=== PATIENT | female | born 1985 | race African-American/Black ===

== ENCOUNTER 2020-06-25 15:32 | Observation (INO) | payer OTHER, SELFPAY ==
[2020-06-25] MEDS: DEXTROSE 5%/LACTATED RINGERS 1,000 ML 999 ML IV CONT (16:38)
[2020-06-25] MEDS: ONDANSETRON INJ 4 MG/2 ML VIAL IV PUSH ×2 (16:38→22:51)
[2020-06-25] MEDS: FAMOTIDINE 20 MG/2 ML VIAL IV PUSH (16:39)
[2020-06-25 16:51] VITALS: BP 117/68; PULSE 72
[2020-06-25 17:03] LABS: Hematocrit 41.6 % (37.0-47.0); Hemoglobin 13.3 g/dL (12.0-15.0); Mean Corpuscular Hemoglobin 27.8 pg (26-34); Mean Corpuscular Volume 86.8 fl (80-100); Mean Platelet Volume 10.3 fl (7.4-10.4); Platelet Count Result 311 k/mm3 (150-375); Red Blood Count 4.79 M/mm3 (4.2-5.4); Red Cell Distribution Width 13.5 % (11.5-14.5); White Blood Count 7.6 K/mm3 (4.5-10.0)
[2020-06-25 17:16] LABS: Add Urine Microscopic? YES; Appearance Urine Cloudy (Clear); Bilirubin Urine Negative (Negative); Blood Urine Negative (Negative); Color Urine Amber (Yellow); Glucose Urine UA Negative (Negative); Ketones Urine 2+ mg/dL (Negative); Leukocyte Esterase Ur Negative LEU/UL (NEGATIVE); Mucus Urine Heavy /lpf; Nitrate Urine Negative (Negative); Protein Urine 3+ mg/dL (Negative); RBC Urine 0-2 /hpf (0-2); Squamous Epithelial Cell Urine Few /hpf (Few); WBC Urine 0-3 /hpf (0-3)
[2020-06-25 17:18] LABS: Alanine Aminotransferase 16 U/L (4-35); Albumin Level 4.3 g/dL (3.5-5.1); Alkaline Phosphatase 51 U/L (38-126); Anion Gap 7 mmol/L (8-16); Aspartate Amino Transferase 27 U/L (14-36); Bilirubin,Total 0.5 mg/dL (0.2-1.3); Blood Urea Nitrogen 5 mg/dL (7-17); Calcium 9.5 mg/dL (8.4-10.2); Carbon Dioxide 26 mmol/L (22-30); Chloride 102 mmol/L (98-107); Estimated Glomerular Filt Rate > 60; Glucose 86 mg/dL (65-105); Potassium 3.9 mmol/L (3.4-5.0); Sodium 135 mmol/L (137-145)
[2020-06-25 17:22] LABS: Specific Grav Ur 1.035 (1.001-1.035)
[2020-06-25 17:29] VITALS: BMI 36.7
--- NOTE | 2020-06-25 17:58 | PM.IMHP ---
H&P: HPI History of Present Illness Date/Time: 06/25/20 17:58 Barbi is a 35yo @ 8.5wks (SARAH [birth year]) who presented to clinic today for routine care. She has been having significant N/V. She went to [facility] on Tuesday and was given IV fluids and anti-nausea meds. She was discharged home and instantly got sick. She has not been able to keep anything down; not even water (was actively vomiting in clinic). She has been taking B6, Unisom, reglan, and zofran (is out of her zofran script). She also reports heartburn. She denies CP, SOB, BHANDARI, vision changes, vaginal bleeding, cramping, dysuria, dizziness or palpitations. Chief Complaint: nausea and vomiting Review of Systems Review of Systems: All systems reviewed & are unremarkable except as noted in HPI and below (HPI) Meds Home Medications and Allergies Allergies Allergy/AdvReac Type Severity Reaction Status Date / Time No Known Allergies Allergy Unverified 06/18/13 10:25 Vital Signs Vital Signs - 24 hr 06/25/20 16:51 Pulse Rate 72 Blood Pressure 117/68 Exam Const: General: cooperative and ill appearing Resp: Effort & Inspection: normal respiratory effort and able to speak in complete sentences Cardio: Rate: regular rate GI: Inspection: non-distended GI Palp: No abdominal tenderness and Yes Soft to palpation : Other: single IUP on bedside US w/ +FHT's. Non tender. Back/Spine/Pelvis: Back: no CVA tenderness Skin: General skin exam: normal color Neuro: General: patient oriented x3 Extrem: General: normal to inspection Psych: Appearance: grossly normal Affect: normal affect Attitude: cooperative H&P: Results Labs Labs: Short CBC 06/25/20 Range/Units 16:50 WBC 7.6 (4.5-10.0) K/mm3 Hgb 13.3 (12.0-15.0) g/dL Hct 41.6 (37.0-47.0) % Plt Count 311 (150-375) k/mm3 BMP 06/25/20 16:50 Sodium 135 L Potassium 3.9 Chloride 102 Carbon Dioxide 26 BUN 5 L Creatinine 0.90 Glucose 86 Calcium 9.5 Liver Function 06/25/20 Range/Units 16:50 Total Bilirubin 0.5 (0.2-1.3) mg/dL AST 27 (14-36) U/L ALT 16 (4-35) U/L Alkaline Phosphatase 51 (38-126) U/L Albumin 4.3 (3.5-5.1) g/dL Urine 06/25/20 Range/Units 16:55 Urine Color Harper (Yellow) Urine Appearance Cloudy H (Clear) Urine pH 6.0 (5.0-9.0) Ur Specific [place] 1.035 (1.001-1.035) Urine Protein 3+ H (Negative) mg/dL Urine Glucose (UA) Negative (Negative) mg/dL Assessment and Plan Assessment and plan (1) Hyperemesis affecting , antepartum: Code(s): O21.0 - Mild hyperemesis gravidarum Status: Acute Additional Plan - Admit for IV fluids and IV anti-emetics and pepcid - Ice chips tonight (slowly) - If decreased nausea in the AM; will slowly advance to CLD and PO meds - Labs normal - UA collected, possibly contaminated-- Ucx pending
--- NOTE | 2020-06-25 18:10 | WPDHPUPDATE1 ---
History and Physical Update Update Date/Time: 06/25/20 18:10 History and Physical has been reviewed, including an updated exam of the patient. There are NO changes in the patient's condition. Risks, benefits, and alternatives have been discussed and questions answered. Patient agrees to proceed with procedure.
[2020-06-25 18:31] VITALS: BP 115/58; PULSE 82
[2020-06-25 18:32] VITALS: BP 117/61; PULSE 83
--- NOTE | 2020-06-25 18:35 | PC.NURSE ---
Pt continues to feel nauseated. Dr. Devi in unit and saw pt. Orders received.
[2020-06-25] MEDS: DEXTROSE 5%/LACTATED RINGERS 1,000 ML 200 ML IV CONT ×2 (18:38→23:56)
[2020-06-25] MEDS: METOCLOPRAMIDE HCL INJ 10 MG/2 ML VIAL IV PUSH ×2 (18:39→23:54)
[2020-06-25] MEDS: PROMETHAZINE HCL 12.5 MG SUPP.RECT RECTAL (18:40)
[2020-06-25 18:46] VITALS: BP 123/63; PULSE 86
--- NOTE | 2020-06-25 20:30 | PC.NURSE ---
Pt sleeping. No complaints.
[2020-06-25 22:46] VITALS: BP 108/50; PULSE 83
[2020-06-25] MEDS: PYRIDOXINE HCL 25 MG TABLET PO (22:52)
--- NOTE | 2020-06-26 02:34 | PC.NURSE ---
Addendum entered by Fuad Presley RN 06/26/20 02:36: AMEND NOTE TO TIME 06/25/20 at 2230 Original Note: Pt states Phenergan made her feel like she needed to have BM and does not want to take it again. Pt has been sleeping and states nausea is much better. No vomiting. IV infusing without difficulty.
[2020-06-26] MEDS: DEXTROSE 5%/LACTATED RINGERS 1,000 ML 200 ML IV CONT ×2 (05:06→10:00)
[2020-06-26] MEDS: FAMOTIDINE 20 MG/2 ML VIAL IV PUSH (05:06)
[2020-06-26] MEDS: ONDANSETRON INJ 4 MG/2 ML VIAL IV PUSH (05:07)
--- NOTE | 2020-06-26 06:48 | PC.NURSE ---
Addendum entered by Fuad Presley RN 06/26/20 06:50: Note should be timed 0430. Original Note: Pt has been sleeping all night. No vomiting. Pt states she is feeling much better. Kept ice chips down.
[2020-06-26 08:09] VITALS: BP 113/57; PULSE 82
[2020-06-26] MEDS: METOCLOPRAMIDE HCL INJ 10 MG/2 ML VIAL IV PUSH (10:01)
--- NOTE | 2020-06-26 12:46 | PM.OBPNVD ---
OB - PN: Subj Subjective Date/time seen: 06/26/20 12:47 Barbi reports doing better today. One small episode of emesis, but denies nausea now. She has tolerated regular diet (apple, soup, cereal). She reports her heartburn is improved. She is passing gas but constipated. She has urinated >1000cc today. She denies cramping or bleeding. no CP, SOB, n, fever, chills, dysuria or abdominal pain. OB - PN: Obj Data Labs CBC & Chem 7: 06/25/20 16:50 06/25/20 16:50 Labs: Laboratory Results - last 24 hr 06/25/20 06/25/20 06/25/20 16:50 16:50 16:55 WBC 7.6 RBC 4.79 Hgb 13.3 Hct 41.6 MCV 86.8 MCH 27.8 MCHC 32.0 RDW 13.5 Plt Count 311 MPV 10.3 Sodium 135 L Potassium 3.9 Chloride 102 Carbon Dioxide 26 Anion Gap 7 L BUN 5 L Creatinine 0.90 Estim Creat Clear Calc Not Reportable Estimated GFR > 60 Glucose 86 Calcium 9.5 Total Bilirubin 0.5 AST 27 ALT 16 Alkaline Phosphatase 51 Total Protein 8.0 Albumin 4.3 Urine Color Harper Urine Appearance Cloudy H Urine pH 6.0 Ur Specific [place] 1.035 Urine Protein 3+ H Urine Glucose (UA) Negative Urine Ketones 2+ H Ur Blood (Man) Negative Urine Nitrate Negative Urine Bilirubin Negative Urine Urobilinogen 2.0 H Ur Leukocyte Esterase Negative Urine RBC 0-2 Urine WBC 0-3 Ur Squamous Epith Cells Few Hyaline Casts 1-2 Urine Mucus Heavy H OB - PN A/P Assessment and Plan (1) Hyperemesis affecting , antepartum: Code(s): O21.0 - Mild hyperemesis gravidarum Status: Acute Plan Comments: meds switched to PO; IV fluids stopped tolerated regular diet discussed eating small, bland meals frequently and taking meds as prescribed; stay hydrated f/u in clinic at normal appointment; call if rx's needed er precautions Time Spent With Patient Time: Total time spent is greater than 50% in coordination of care (as documented) at patient's floor/unit and/or counseling patient: Review of Systems Review of Systems: All systems reviewed & are unremarkable except as noted in HPI and below (HPI) Exam Const: General: cooperative, healthy appearing, comfortable and no acute distress Resp: Effort & Inspection: normal respiratory effort and able to speak in complete sentences Cardio: Rate: regular rate GI: Inspection: normal to inspection and non-distended GI Palp: No abdominal tenderness and Yes Soft to palpation Skin: General skin exam: normal color Neuro: General: patient oriented x3 Psych: Appearance: grossly normal Affect: normal affect Attitude: cooperative
[2020-06-26] MEDS: ACETAMINOPHEN 500 MG TABLET 1000 MG PO (13:39)
[2020-06-26] MEDS: polyethylene glycoL 3350 17 GM POWD.PACK PO (13:40)
[2020-06-26] MEDS: ONDANSETRON HCL ODT 4 MG TABLET PO (13:40)
--- NOTE | 2020-06-26 17:48 | PC.NURSE ---
Patient tolerating PO fluids and ate a half a bowl of soup and half an apple. Patient wanting her IV out. Plan of care regarding discharge discussed. patient is tearful and worried about getting sick after she gets home. States that she has never been this sick with her prior 's. States I even thought about having an . Patient questioned about wanting this baby. States Of course I want this baby Discussed her support system and states that her mom is helpful and did file her FLMA at work, father of baby is involved but works a lot.
--- NOTE | 2020-07-04 12:33 | P.PNOB_ITS ---
OB - Triage/Final Diagnosis Visit Information Comments/Additional reasons for admission: I have assessed the risk for this patient, Barbi Kidd, and determined that she would benefit from observation care. Evaluation Laboratory results: Laboratory Tests 06/25/20 06/25/20 06/25/20 16:50 16:50 16:55 WBC 7.6 RBC 4.79 Hgb 13.3 Hct 41.6 MCV 86.8 MCH 27.8 MCHC 32.0 RDW 13.5 Plt Count 311 MPV 10.3 Sodium 135 L Potassium 3.9 Chloride 102 Carbon Dioxide 26 Anion Gap 7 L BUN 5 L Creatinine 0.90 Estim Creat Clear Calc Not Reportable Estimated GFR > 60 Glucose 86 Calcium 9.5 Total Bilirubin 0.5 AST 27 ALT 16 Alkaline Phosphatase 51 Total Protein 8.0 Albumin 4.3 Urine Color Harper Urine Appearance Cloudy H Urine pH 6.0 Ur Specific [place] 1.035 Urine Protein 3+ H Urine Glucose (UA) Negative Urine Ketones 2+ H Ur Blood (Man) Negative Urine Nitrate Negative Urine Bilirubin Negative Urine Urobilinogen 2.0 H Ur Leukocyte Esterase Negative Urine RBC 0-2 Urine WBC 0-3 Ur Squamous Epith Cells Few Hyaline Casts 1-2 Urine Mucus Heavy H Final Diagnosis (1) Hyperemesis affecting , antepartum: Code(s): O21.0 - Mild hyperemesis gravidarum Status: Acute
== END 2020-06-26 16:45 | disposition home or self-care (01) ==
PROVIDERS: Admitting Provider Obstetrics & Gynecology; Visit Provider Obstetrics & Gynecology
DX: O21.0 Mild hyperemesis gravidarum (principal); Z3A.00 Weeks of gestation of pregnancy not specified
CPT/HCPCS: 36415; 80053; 81001; 85027; 87086; 87088; 96361; 96374; 96375; 96376; A9270; G0378; G0379; J2405; J2765; J7121

== ENCOUNTER 2020-07-10 15:33 | Observation (INO) | payer OTHER, SELFPAY ==
[2020-07-10] MEDS: DEXTROSE 5%/LACTATED RINGERS 1,000 ML 999 ML IV CONT (17:06)
[2020-07-10] MEDS: ONDANSETRON INJ 4 MG/2 ML VIAL IV PUSH ×2 (17:07→23:23)
[2020-07-10] MEDS: FAMOTIDINE 20 MG/2 ML VIAL IV PUSH (17:09)
[2020-07-10 17:18] LABS: Hemoglobin 13.1 g/dL (12.0-15.0); Mean Corpuscular Hemoglobin 27.9 pg (26-34); Mean Corpuscular Volume 87.2 fl (80-100); Mean Platelet Volume 10.8 fl (7.4-10.4); Platelet Count Result 274 k/mm3 (150-375); Red Cell Distribution Width 13.2 % (11.5-14.5); White Blood Count 7.3 K/mm3 (4.5-10.0)
--- NOTE | 2020-07-10 17:19 | OBADM ---
This patient, Barbi Kidd, admitted to the OB room [facility] for observation. Patient/family oriented to hospital policies and general routines including ID bracelet, bed and alarms, visiting hours, pain management, procedures, bathroom and other care routines, personal items, smoking policy, room service/diet, and visiting hours. Patient/Family are encouraged to report perceived risks to care and to ask questions if they do not understand what they are told or what they should do.
[2020-07-10 17:34] LABS: Alanine Aminotransferase 18 U/L (4-35); Albumin Level 4.2 g/dL (3.5-5.1); Alkaline Phosphatase 46 U/L (38-126); Anion Gap 10 mmol/L (8-16); Aspartate Amino Transferase 23 U/L (14-36); Bilirubin,Total 0.6 mg/dL (0.2-1.3); Blood Urea Nitrogen 4 mg/dL (7-17); Calcium 9.4 mg/dL (8.4-10.2); Carbon Dioxide 23 mmol/L (22-30); Chloride 103 mmol/L (98-107); Estimated Glomerular Filt Rate > 60; Glucose 79 mg/dL (65-105); Potassium 3.3 mmol/L (3.4-5.0); Sodium 136 mmol/L (137-145)
[2020-07-10] MEDS: DEXTROSE 5%/LACTATED RINGERS 1,000 ML 200 ML IV CONT ×2 (18:16→23:23)
[2020-07-10] MEDS: METOCLOPRAMIDE HCL INJ 10 MG/2 ML VIAL IV PUSH (19:29)
[2020-07-10 19:48] LABS: Add Urine Microscopic? YES; Appearance Urine Clear (Clear); Bacteria Urine Trace /hpf; Bilirubin Urine Negative (Negative); Blood Urine Negative (Negative); Color Urine Yellow (Yellow); Glucose Urine UA 2+ mg/dL (Negative); Ketones Urine 1+ mg/dL (Negative); Leukocyte Esterase Ur Negative LEU/UL (NEGATIVE); Nitrate Urine Negative (Negative); Protein Urine 1+ mg/dL (Negative); RBC Urine 0-2 /hpf (0-2); Specific Grav Ur 1.011 (1.001-1.035); Squamous Epithelial Cell Urine Few /hpf (Few); WBC Urine 0-3 /hpf (0-3)
[2020-07-10 23:27] VITALS: BP 107/50; PULSE 79; TEMP 37.1
[2020-07-10 23:28] VITALS: BP 107/50; PULSE 79
--- NOTE | 2020-07-11 02:56 | PC.NURSE ---
0250 - pt called out to get up to use the restroom. Pt asked how she was feeling; pt moaned not well, but declines any nausea or pain medicine and doesn't specify what is causing her to not feel well. Pt is not very verbal, but pleasant. Pt encouraged to call out if anything changes or she would need anything. Call light within reach.
[2020-07-11] MEDS: DEXTROSE 5%/LACTATED RINGERS 1,000 ML 200 ML IV CONT (04:33)
[2020-07-11] MEDS: ONDANSETRON INJ 4 MG/2 ML VIAL IV PUSH (05:48)
--- NOTE | 2020-07-11 07:10 | PC.NURSE ---
Dr. Palencia given an update on patient. Received orders from to discharge patient to home.
--- NOTE | 2020-07-15 07:18 | P.PNOB_ITS ---
OB - Triage/Final Diagnosis Visit Information Reason for evaluation: decreased movement Comments/Additional reasons for admission: I have assessed the risk for this patient, Barbi Kidd, and determined that she would benefit from observation care. Evaluation Laboratory results: Laboratory Tests 07/10/20 07/10/20 07/10/20 17:11 17:11 19:32 WBC 7.3 RBC 4.70 Hgb 13.1 Hct 41.0 MCV 87.2 MCH 27.9 MCHC 32.0 RDW 13.2 Plt Count 274 MPV 10.8 H Sodium 136 L Potassium 3.3 L Chloride 103 Carbon Dioxide 23 Anion Gap 10 BUN 4 L Creatinine 1.00 Estim Creat Clear Calc Not Reportable Estimated GFR > 60 Glucose 79 Calcium 9.4 Total Bilirubin 0.6 AST 23 ALT 18 Alkaline Phosphatase 46 Total Protein 8.0 Albumin 4.2 Urine Color Yellow Urine Appearance Clear Urine pH 7.0 Ur Specific [place] 1.011 Urine Protein 1+ H Urine Glucose (UA) 2+ H Urine Ketones 1+ H Ur Blood (Man) Negative Urine Nitrate Negative Urine Bilirubin Negative Urine Urobilinogen 4.0 H Ur Leukocyte Esterase Negative Urine RBC 0-2 Urine WBC 0-3 Ur Squamous Epith Cells Few Urine Bacteria Trace
--- NOTE | 2020-07-16 11:39 | P.PNOB_ITS ---
OB - Triage/Final Diagnosis Visit Information Reason for evaluation: other (nausea/vomiting) Comments/Additional reasons for admission: I have assessed the risk for this patient, Barbi Kidd, and determined that she would benefit from observation care. Evaluation Laboratory results: Laboratory Tests 07/10/20 07/10/20 07/10/20 17:11 17:11 19:32 WBC 7.3 RBC 4.70 Hgb 13.1 Hct 41.0 MCV 87.2 MCH 27.9 MCHC 32.0 RDW 13.2 Plt Count 274 MPV 10.8 H Sodium 136 L Potassium 3.3 L Chloride 103 Carbon Dioxide 23 Anion Gap 10 BUN 4 L Creatinine 1.00 Estim Creat Clear Calc Not Reportable Estimated GFR > 60 Glucose 79 Calcium 9.4 Total Bilirubin 0.6 AST 23 ALT 18 Alkaline Phosphatase 46 Total Protein 8.0 Albumin 4.2 Urine Color Yellow Urine Appearance Clear Urine pH 7.0 Ur Specific [place] 1.011 Urine Protein 1+ H Urine Glucose (UA) 2+ H Urine Ketones 1+ H Ur Blood (Man) Negative Urine Nitrate Negative Urine Bilirubin Negative Urine Urobilinogen 4.0 H Ur Leukocyte Esterase Negative Urine RBC 0-2 Urine WBC 0-3 Ur Squamous Epith Cells Few Urine Bacteria Trace
== END 2020-07-11 07:25 | disposition home or self-care (01) ==
PROVIDERS: Admitting Provider Obstetrics & Gynecology; Visit Provider Obstetrics & Gynecology
DX: O21.0 Mild hyperemesis gravidarum (principal); Z3A.10 10 weeks gestation of pregnancy
CPT/HCPCS: 36415; 80053; 81001; 85027; 96361; 96374; 96375; 96376; G0378; G0379; J2405; J2765; J7121